=== PATIENT | female | born 1970 | race Hispanic/Latino ===

== ENCOUNTER 2024-01-04 15:00 | Inpatient (IN) | payer OTHER, MEDICARE ==
[~2024-01-04] VITALS: Ht 157.5 cm; Wt 102.2 kg
[2024-01-04 12:27] LABS: BASOPHILS # (AUTO) 0.04 K/uL (0.00-0.20); BASOPHILS % (AUTO) 0.6 % (0.0-5.0); EOSINOPHILS # (AUTO) 0.22 K/uL (0.00-0.70); EOSINOPHILS % (AUTO) 3.1 % (0.0-8.0); HEMATOCRIT 37.9 % (36-48); IMMATURE GRANULOCYTE ABSOLUTE 0.02 K/uL (0-1); LYMPHOCYTES # (AUTO) 1.4 K/uL (1.0-4.8); LYMPHOCYTES % (AUTO) 20.3 % (21.0-51.0); MEAN CORPUSCULAR HEMOGLOBIN 29.8 pg (27.0-33.0); MEAN CORPUSCULAR HGB CONC 33.8 g/dL (32.0-36.0); MEAN CORPUSCULAR VOLUME 88.1 fL (79-99); MONOCYTES # (AUTO) 0.3 K/uL (0.1-1.0); MONOCYTES % (AUTO) 4.3 % (3.0-13.0); NEUTROPHILS % (AUTO) 71.4 % (40.0-77.0); PLATELET COUNT (AUTO) 174 K/uL (130-400); RED CELL DISTRIBUTION WIDTH 13.2 % (11.0-15.5)
[2024-01-04 12:40] LABS: INR 0.95 (0.85-1.15); PROTHROMBIN TIME 10.3 SEC (9.6-11.6)
[2024-01-04 12:45] LABS: ALBUMIN 3.2 g/dL (3.5-5.0); BILIRUBIN,TOTAL 0.5 mg/dL (0.2-1.0); CREATININE 0.7 mg/dL (0.5-1.0); POTASSIUM 3.7 mmol/L (3.5-5.1); TOTAL PROTEIN, SERUM 6.8 g/dL (6.0-8.3)
[2024-01-04 13:04] VITALS: BP 102/76; PULSE 71; RESP 16; TEMP 97.8
[2024-01-04] MEDS ORDERED: LEVO5TAB13 PO (16:14)
[2024-01-04] MEDS ORDERED: SENN8.6T32 PO (16:14)
[2024-01-04] MEDS ORDERED: DICY10CA2 PO (16:14)
[2024-01-04] MEDS ORDERED: FLUT16H NASAL (16:14)
[2024-01-04] MEDS ORDERED: DOCU-116 PO (16:14)
[2024-01-04] MEDS ORDERED: LEVO112T7 PO (16:14)
[2024-01-04] MEDS ORDERED: GABAPENTIN PO (16:14)
[2024-01-05] VITALS (24 sets, daily range): BP systolic 100–135; BP diastolic 56–90; PULSE 49–86; RESP 13–20; TEMP 97.4–98.9; O2SAT 99–100
[2024-01-05] MEDS ORDERED: ketaMINE 50MG/ML SYRINGE 50 MG/ML DISP.SYRIN ONE (07:59)
[2024-01-05] MEDS ORDERED: FENTanyl CITRate PF 50 MCG/1 ML 2ML VIAL ONE (08:00)
[2024-01-05] MEDS ORDERED: proPOFol 10 MG/ML 20ML VIAL IV ONE (08:00)
[2024-01-05] MEDS ORDERED: LIDOCAINE PF 100MG/5ML (2%) SYRINGE 5ML ONE (08:00)
[2024-01-05] MEDS ORDERED: rocuRONium bROMide 10MG/1ML 5ML VL ONE ×2 (08:00→09:34)
[2024-01-05] MEDS ORDERED: BUPIvacaine/PF 0.5% 30ML VIAL ONE (08:26)
[2024-01-05] MEDS ORDERED: LIDOCAINE 1%-EPI 1:100,000 20 ML VIAL ONE (08:26)
[2024-01-05] MEDS ORDERED: ondanSETRON 4MG INJ ONE (09:03)
[2024-01-05] MEDS ORDERED: dexaMETHasone SOD PHOSPHATE 10MG/ML 1ML VIAL ONE (09:03)
[2024-01-05] MEDS: BUPIvacaine/PF 0.25% 30ML VIAL IJ ONE ×2 (09:18)
[2024-01-05] MEDS ORDERED: phenylEPHRINE HCL 10 MG/ML 1ML VIAL IV ONE (09:26)
[2024-01-05] MEDS: MEROPENEM 1 GM VIAL ONE (09:30)
[2024-01-05] MEDS: LACTATED RINGERS 1000ML 1,000 ML IV ONE (09:30)
[2024-01-05] MEDS ORDERED: GABA-1555 PO (09:37)
[2024-01-05] MEDS ORDERED: NEOSTIGMINE METHYLSULFATE 1MG/ML IV ONE (10:46)
[2024-01-05] MEDS ORDERED: GLYCOPYRROLATE 0.2 MG/ML 5 ML VIAL ONE (10:46)
[2024-01-05] MEDS: ondanSETRON 4MG INJ ONE (11:37)
[2024-01-05] MEDS: MEPERIDINE-PF 25 MG/ML SYG ONE (11:38)
[2024-01-05] MEDS ORDERED: OXYcodONE HCL 5 MG TAB PO PRN (12:00)
[2024-01-05] MEDS ORDERED: INSULIN humuLIN R 100 UNIT/ML 3ML SQ PRN (12:00)
[2024-01-05] MEDS ORDERED: hydroMORPHone 0.5 MG SYG (0.5MG/0.5ML) IVP PRN (12:00)
[2024-01-05] MEDS: acetaMINOPHEN 325 MG TAB PO SCH (12:00)
[2024-01-05] MEDS ORDERED: ondanSETRON 4MG INJ IVP PRN (12:00)
[2024-01-05] MEDS: ALBUMIN (HUMAN) 5% 250 ML IV ONE (13:13)
[2024-01-05] MEDS: ALBUMIN (HUMAN) 25% 50 ML IV ONE (13:13)
[2024-01-05] MEDS: FAMOTIDINE 20MG VIAL IV ONE (13:19)
[2024-01-05] MEDS: acetaMINOPHEN 1,000 MG/100 ML VIAL IV ONE (13:19)
[2024-01-05] MEDS: SCOPOLAMINE HYDROBROMIDE 1 EACH ADH..PATCH TD ONE (13:19)
[2024-01-05] MEDS: INDOCYANINE GREEN 25 MG VIAL IJ ONE (13:20)
[2024-01-05] MEDS: GABAPENTIN 300 MG CAPSULE PO SCH (15:12)
[2024-01-05] MEDS: LACTATED RINGERS 1000ML 1,000 ML IV SCH (15:12)
[2024-01-05] MEDS: DICYCLOMINE HCL 20 MG TAB PO SCH (20:01)
[2024-01-05] MEDS: doCUSate SODIUM 100 MG CAP PO SCH (20:01)
[2024-01-05] MEDS: DICYCLOMINE HCL 20 MG TAB ONE (20:02)
[2024-01-05] MEDS ORDERED: NON-FORMULARY MEDICATION 1 EACH (Gabapentin 800 MG) PO SCH (21:00)
[2024-01-05] MEDS ORDERED: NON-FORMULARY MEDICATION 1 EACH (Dicyclomine HCl 10 MG) PO SCH (21:00)
[2024-01-05] MEDS ORDERED: NON-FORMULARY MEDICATION 1 EACH (Levocetirizine Dihydrochloride 5 MG) PO SCH (21:00)
[2024-01-05] MEDS: MELATONIN 5 MG TABLET PO SCH (23:20)
[2024-01-06] VITALS (7 sets, daily range): BP systolic 91–133; BP diastolic 56–96; PULSE 69–103; RESP 18–20; TEMP 97.9–99.6; O2SAT 95
[2024-01-06] MEDS: levoTHYROxine 112 MCG TABLET PO SCH (06:03)
[2024-01-06] MEDS: levoTHYROxine 112 MCG TABLET ONE (06:04)
[2024-01-06] MEDS: ceTIRIzine HCL 5 MG TABLET PO SCH (08:26)
[2024-01-06] MEDS: ENOXAPARIN SODIUM 40 MG/0.4 ML SYRINGE SQ SCH (08:28)
[2024-01-06] MEDS: fluTICasone proPIONate 50MCG/SPRAY 16 GM BOTTLE NS SCH (10:02)
[2024-01-06] MEDS: ketOROlac 15MG/ML VIAL (15MG/ML) IM PRN (10:09)
[2024-01-06 10:28] LABS: BASOPHILS # (AUTO) 0.04 K/uL (0.00-0.20); BASOPHILS % (AUTO) 0.4 % (0.0-5.0); EOSINOPHILS # (AUTO) 0.04 K/uL (0.00-0.70); EOSINOPHILS % (AUTO) 0.4 % (0.0-8.0); HEMATOCRIT 36.5 % (36-48); IMMATURE GRANULOCYTE ABSOLUTE 0.05 K/uL (0-1); LYMPHOCYTES # (AUTO) 1.1 K/uL (1.0-4.8); LYMPHOCYTES % (AUTO) 9.3 % (21.0-51.0); MEAN CORPUSCULAR HEMOGLOBIN 29.8 pg (27.0-33.0); MEAN CORPUSCULAR VOLUME 87.7 fL (79-99); MONOCYTES # (AUTO) 0.6 K/uL (0.1-1.0); MONOCYTES % (AUTO) 4.9 % (3.0-13.0); NEUTROPHILS # (AUTO) 9.6 K/uL (1.8-7.7); NEUTROPHILS % (AUTO) 84.6 % (40.0-77.0); PLATELET COUNT (AUTO) 172 K/uL (130-400); RED BLOOD CELL COUNT(AUTO) 4.16 MIL/uL (4.00-5.50); RED CELL DISTRIBUTION WIDTH 13.2 % (11.0-15.5); WHITE BLOOD COUNT (AUTO) 11.3 K/uL (4.8-10.8)
[2024-01-06 10:40] LABS: CREATININE 0.8 mg/dL (0.5-1.0); POTASSIUM 3.4 mmol/L (3.5-5.1)
[2024-01-06] MEDS: PoTASSium chl 10% ELIXIR 20MEQ 20 MEQ/15 ML UDCUP PO ONE (19:56)
[2024-01-07] VITALS: BP 95/55; PULSE 80; RESP 19; TEMP 98.5
[2024-01-07] MEDS: levoTHYROxine 112 MCG TABLET PO SCH (06:08)
[2024-01-07 08:00] VITALS: BP 93/53; PULSE 67; RESP 18; TEMP 98.3; O2SAT 97
[2024-01-07 08:59] LABS: BASOPHILS # (AUTO) 0.03 K/uL (0.00-0.20); BASOPHILS % (AUTO) 0.3 % (0.0-5.0); EOSINOPHILS # (AUTO) 0.16 K/uL (0.00-0.70); EOSINOPHILS % (AUTO) 1.6 % (0.0-8.0); HEMATOCRIT 32.1 % (36-48); IMMATURE GRANULOCYTE ABSOLUTE 0.03 K/uL (0-1); LYMPHOCYTES % (AUTO) 10.1 % (21.0-51.0); MEAN CORPUSCULAR HEMOGLOBIN 29.7 pg (27.0-33.0); MEAN CORPUSCULAR VOLUME 87.5 fL (79-99); MONOCYTES # (AUTO) 0.6 K/uL (0.1-1.0); NEUTROPHILS # (AUTO) 8.2 K/uL (1.8-7.7); NEUTROPHILS % (AUTO) 81.7 % (40.0-77.0); PLATELET COUNT (AUTO) 144 K/uL (130-400); RED BLOOD CELL COUNT(AUTO) 3.67 MIL/uL (4.00-5.50); RED CELL DISTRIBUTION WIDTH 13.2 % (11.0-15.5)
[2024-01-07 09:09] LABS: CREATININE 0.7 mg/dL (0.5-1.0); POTASSIUM 3.3 mmol/L (3.5-5.1)
[2024-01-07] MEDS: PoTASSium chloRIDE 20MEQ ER 20 MEQ ERTAB PO ONE (09:53)
== END 2024-01-07 13:30 | disposition home or self-care (01) | DRG 330 ==
LOC: DAHIP 01-05 07:40 → 4DH 01-05 13:00
PROVIDERS: ADMIT Surgery; ATTEND Surgery
PROC: 0WQF0ZZ Repair Abdominal Wall, Open Approach (ICD-10-PCS; 2024-01-05)
PROC: 0DBL0ZZ Excision of Transverse Colon, Open Approach (ICD-10-PCS; principal; 2024-01-05 08:45)
DX: K43.5 Parastomal hernia without obstruction or gangrene (principal); K94.09 Other complications of colostomy; Z68.41 Body mass index [BMI] 40.0-44.9, adult; Y83.8 Other surgical procedures as the cause of abnormal reaction of the patient, or of later complication, without mention of misadventure at the time of the procedure; E66.01 Morbid (severe) obesity due to excess calories; E87.6 Hypokalemia; E03.9 Hypothyroidism, unspecified; D72.829 Elevated white blood cell count, unspecified; Z79.899 Other long term (current) drug therapy; Z88.2 Allergy status to sulfonamides; Z85.43 Personal history of malignant neoplasm of ovary; Z88.8 Allergy status to other drugs, medicaments and biological substances; Z90.49 Acquired absence of other specified parts of digestive tract
CPT/HCPCS: 36415; 80048; 80053; 85025; 85610; 85730; 86850; 86900; 86901; 88302; 88307; 93005; A4344; G0378; J1100; J1650; J1885; J2001; J2175; J2185; J2371; J2405; J2704; J2710; J3010; J3490; J7120; P9045; P9047; A4215; A4216; A4221; A4222; A4223; A4600; A4649; A4663; A4930; A6260; J0665